=== PATIENT | female | born 1985 | race Caucasian/White ===

== ENCOUNTER 2017-11-26 23:40 | Inpatient (IN) | END 2017-11-28 17:56 | disposition home or self-care (01) | DRG 340 ==

== ENCOUNTER 2018-01-30 21:59 | Emergency (ER) | END 2018-01-31 02:51 | disposition home or self-care (01) ==

== ENCOUNTER 2019-03-23 10:40 | Emergency (ER) | payer BC ==
[~2019-03-23] VITALS: Ht 160 cm; Wt 57.6 kg
[~2019-03-23 10:40] MED LIST: CIPR500T4 PO; HYDR-3601 PO; HYDR-4011 PO; IBUP-1542 PO; IBUP-1561 PO; UNK MEDS
[2019-03-23 10:57] VITALS: BP 124/62; PULSE 83; RESP 18; Ht 160 cm; Wt 57.6 kg
[2019-03-23] MEDS ORDERED: ONDANSETRON (ODT) 4 MG TAB ODT STA (11:16)
[2019-03-23] MEDS ORDERED: HYDROCODONE/APAP (5/325) TAB PO ONE (11:30)
== END 2019-03-23 12:26 | disposition home or self-care (01) ==
LOC: FTE 10:40
DX: N39.0 Urinary tract infection, site not specified (principal); N83.201 Unspecified ovarian cyst, right side
CPT/HCPCS: 36415; 76856; 80053; 81001; 81025; 83690; 84703; 85025